=== PATIENT | female | born 1990 | race Caucasian/White ===

== ENCOUNTER 2020-02-04 18:43 | Emergency (ER) | payer SELFPAY ==
[2020-02-04] MEDS ORDERED: FENTANYL CITR 100 MCG/2 ML ONE ×3 (19:17→21:18)
[2020-02-04] MEDS ORDERED: ONDANSETRON 4 MG/2 ML VIAL ONE (19:17)
[2020-02-04] MEDS ORDERED: METHYLPREDNISOLONE 125 MG INJ ONE (20:33)
[2020-02-04] MEDS ORDERED: DIPHENHYDRAMINE 50 MG/ML VIAL ONE (20:33)
[2020-02-04 20:43] LABS: Basophils % 0.6 % (0-1.3); Lymphocytes % 22.6 % (15.3-44.8); RBC Red Blood Cell Count 3.65 M/uL (3.86-4.86)
[2020-02-04 20:55] LABS: BUN Blood Urea Nitrogen 14 mg/dL (7-18); Bicarbonate 24 mmol/L (21-32); Glucose Level 81 mg/dL (74-106); Potassium 3.6 mmol/L (3.5-5.1); Sodium Level 141 mmol/L (136-145)
[2020-02-04] MEDS ORDERED: HYDROMORPHONE HCL 0.5 MG/0.5 ML INJ ONE ×2 (22:01→22:50)
--- NOTE | 2020-02-04 22:34 | EDPHYS ---
Physician Documentation [facility] Name: Carol Saldana Age: 29 yrs Sex: Female : 1990 Arrival Date: 02/04/2020 Time: 18:44 Bed 5 Private MD: ED Physician King Mandujano HPI: 02/03 20:16 This 29 yrs old Female presents to ER via Ambulatory with complaints of Fall jr8 Injury. 20:16 Details of fall: The patient fell from a height, top of 18 [address] . Onset: The jr8 symptoms/episode began/occurred acutely, today. Associated injuries: The patient sustained upper back injury, injury to the chest, injury to the abdomen. Severity of symptoms: At their worst the symptoms were moderate, in the emergency department the symptoms are unchanged. The patient has not experienced similar symptoms in the past. The patient has not recently seen a physician. Patient stated that she was changing a bulb on top of truck. Stated that she slipped and fell left side and then on back. Denies hitting head or neck. Denies LOC . 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 - Social history:: Smoking status: Patient reports the use of cigarette tobacco products, smokes one-half pack cigarettes per day. - Immunization history: Last tetanus immunization: unknown. ROS: 20:16 Eyes: Negative for injury, pain, redness, and discharge, ENT: Negative for injury, jr8 pain, and discharge, Neck: Negative for injury, pain, and swelling, Respiratory: Negative for shortness of breath, cough, wheezing, and pleuritic chest pain, Skin: Negative for injury, rash, and discoloration, Neuro: Negative for headache, weakness, numbness, tingling, and seizure. 20:16 Cardiovascular: Positive for chest pain, with movement. 20:16 Abdomen/GI: Positive for abdominal pain, Negative for nausea, vomiting, and diarrhea. 20:16 Back: Positive for pain at rest, pain with movement, Negative for radiated pain. 20:16 MS/extremity: Positive for pain, of the left foot. Exam: 20:16 Head/Face: Normocephalic, atraumatic. Eyes: Pupils equal round and reactive to light, jr8 extra-ocular motions intact. Lids and lashes normal. Conjunctiva and sclera are non-icteric and not injected. Cornea within normal limits. Periorbital areas with no swelling, redness, or edema. ENT: Nares patent. No nasal discharge, no septal abnormalities noted. Tympanic membranes are normal and external auditory canals are clear. Oropharynx with no redness, swelling, or masses, exudates, or evidence of obstruction, uvula midline. Mucous membranes moist. Neck: Trachea midline, no thyromegaly or masses palpated, and no cervical lymphadenopathy. Supple, full range of motion without nuchal rigidity, or vertebral point tenderness. No Meningismus. Cardiovascular: Tachycardia with a normal S1 and S2. No gallops, murmurs, or rubs. Normal PMI, no JVD. No pulse deficits. Respiratory: Lungs have equal breath sounds bilaterally, clear to auscultation and percussion. No rales, rhonchi or wheezes noted. No increased work of breathing, no retractions or nasal flaring. 20:16 Skin: Warm, dry with normal turgor. Normal color with no rashes, no lesions, and no evidence of cellulitis. Neuro: Awake and alert, GCS 15, oriented to person, place, time, and situation. Cranial nerves II-XII grossly intact. Motor strength 5/5 in all extremities. Sensory grossly intact. Cerebellar exam normal. Normal gait. 20:16 Chest/axilla: Inspection: normal, Palpation: tenderness, that is moderate, of the left lateral anterior chest. 20:16 Abdomen/GI: Inspection: abdomen appears normal, Bowel sounds: active, all quadrants, Palpation: soft, in all quadrants, moderate abdominal tenderness, in the anterior aspect of left lateral abdomen and left upper quadrant, Liver: tenderness, is not appreciated. 20:16 Back: pain, that is moderate, of the thoracic area (T7) region, ROM is painful, normal spinal alignment noted, CVA tenderness, is absent. 20:16 Musculoskeletal/extremity: Extremities: grossly normal except: noted in the left foot: pain, tenderness, ROM: intact in all extremities, Circulation is intact in all extremities. Sensation intact. Vital Signs: 18:47 BP 133 / 81; Pulse 141; Resp 18; Temp 98.1; Pulse Ox 96% ; Weight 61.23 kg; Height 5 ll1 ft. 6 in. (167.64 cm); Pain 9/10; 19:28 BP 117 / 89; Pulse 111; Resp 17; Temp 98.5; Pulse Ox 98% on R/A; ll2 20:17 BP 106 / 85; Pulse 111; Resp 18; Pulse Ox 98% on R/A; ea 21:00 BP 127 / 79; Pulse 94; Resp 18; Pulse Ox 98% ; ea 22:00 BP 122 / 71; Pulse 88; Resp 18; Pulse Ox 99% on R/A; ea 22:30 BP 126 / 70; Pulse 80; Resp 18; Pulse Ox 98% on R/A; ea 18:47 Body Mass Index 21.79 (61.23 kg, 167.64 cm) ll1 [place] Coma Score: 19:23 Eye Response: spontaneous(4). Verbal Response: oriented(5). Motor Response: obeys ea commands(6). Total: 15. Trauma Score (Adult): 19:23 Eye Response: spontaneous(1); Verbal Response: oriented(1); Motor Response: obeys ea commands(2); Systolic BP: > 89 mm Hg(4); Respiratory Rate: 10 to 29 per min(4); Jaja Score: 15; Trauma Score: 12 MDM: 18:52 Patient medically screened. [facility] 22:22 Data reviewed: vital signs, nurses notes, lab test result(s), radiologic studies, CT jr8 scan, plain films. Data interpreted: Pulse oximetry: on room air is 99 %. Interpretation: normal. Counseling: I had a detailed discussion with the patient and/or guardian regarding: the historical points, exam findings, and any diagnostic results supporting the discharge/admit diagnosis, lab results, radiology results, the need for outpatient follow up, a family practitioner, to return to the emergency department if symptoms worsen or persist or if there are any questions or concerns that arise at home. Response to treatment: the patient's symptoms have mildly improved after treatment. ED course: Patient hemodynamically stable. Pain improved but not gone. VS stable. No acute findings on CT. Will d/c home to f/u with PCP. If worse to come back . 02/03 18:53 Order name: Basic Metabolic Panel; Complete Time: 21:05 [facility] 02/03 18:53 Order name: CBC with Diff; Complete Time: 20:47 [facility] 02/03 18:53 Order name: Type And Screen; Complete Time: 22:22 8 02/03 18:53 Order name: CT Chest, Abdomen, Pelvis - W/Contrast [facility] 02/03 18:53 Order name: XRAY Foot LEFT 3 View 8 02/03 18:53 Order name: Labs collected and sent; Complete Time: 20:32 [facility] Administered Medications: 19:25 Drug: fentaNYL (PF) 50 mcg Route: IM; Site: left gluteus; ll2 21:58 Follow up: Response: No adverse reaction; RASS: Alert and Calm (0) ll2 19:45 Drug: fentaNYL (PF) 50 mcg Route: IVP; Site: right antecubital; ll2 22:01 Follow up: Response: No adverse reaction; RASS: Alert and Calm (0) ll2 20:30 Drug: Zofran (Ondansetron) 4 mg Route: IVP; Site: right antecubital; ll2 21:58 Follow up: Response: No adverse reaction ll2 20:31 Drug: SOLU-Medrol 125 mg Route: IVP; Site: right antecubital; ll2 21:58 Follow up: Response: No adverse reaction ll2 20:32 Drug: Benadryl 25 mg Route: IVP; Site: right antecubital; ll2 21:58 Follow up: Response: No adverse reaction ll2 21:15 Drug: fentaNYL (PF) 50 mcg Route: IVP; Site: right antecubital; ea 22:48 Follow up: Response: No adverse reaction; RASS: Alert and Calm (0) ll2 22:02 Drug: Dilaudid 0.5 mg Route: IVP; Site: right antecubital; ll2 22:02 Follow up: Response: No adverse reaction; RASS: Alert and Calm (0) ll2 22:47 Drug: Dilaudid 0.5 mg Route: IVP; Site: right antecubital; ll2 22:48 Follow up: Response: No adverse reaction; RASS: Alert and Calm (0) ll2 Disposition: 02/04 09:07 Co-signature as Attending Physician, King Mandujano MD I agree with the assessment and kdr plan of care. Disposition: 02/04/20 22:33 Discharged to Home. Impression: Acute pain due to trauma, Avulsion fracture (chip fracture) of talus. - Condition is Stable. - Discharge Instructions: Muscle Pain, Adult, Pain Medicine Instructions. - Prescriptions for Ibuprofen 800 mg Oral Tablet - take 1 tablet by ORAL route every 12 hours As needed take with food; 20 tablet. Robaxin 500 mg Oral Tablet - take 2 tablet by ORAL route every 6 hours As needed; 40 tablet. Tylenol- Codeine #3 300-30 mg Oral Tablet - take 2 tablets by ORAL route every 6 hours As needed; 20 tablet. - Medication Reconciliation Form, Thank You Letter, Antibiotic Education, Prescription Opioid Use form. - Follow up: Private Physician; When: 2 - 3 days; Reason: Recheck today's complaints, Continuance of care, Re-evaluation by your physician. - Problem is new. - Symptoms have improved. Signatures: Dispatcher [employer] EDMS King Mandujano MD MD kdr Roszak, Josh, PA PA jr8 Briana Rangel RN RN Alicia Becker RN RN ll2 Spring Steiner RN RN ll1 Corrections: (The following items were deleted from the chart) 02/03 22:52 22:33 02/04/2020 22:33 Discharged to Home. Impression: Acute pain due to trauma; ea Avulsion fracture (chip fracture) of talus. Condition is Stable. Forms are Medication Reconciliation Form, Thank You Letter, Antibiotic Education, Prescription Opioid Use. Follow up: Private Physician; When: 2 - 3 days; Reason: Recheck today's complaints, Continuance of care, Re-evaluation by your physician. Problem is new. Symptoms have improved. jr8
--- NOTE | 2020-02-04 22:34 | ER ---
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 Fell 9 ll1 feet, hit a catwalk on the way down, then landed on the ground. No head injury, no LOC. Reports hitting left side of abdomen and left hip on catwalk. Left lateral foot pain and mid back pain since. Coronavirus screen: Client denies travel out of the [place] in the last 14 days. At this time, the client does not indicate any symptoms associated with coronavirus-19. Ebola Screen: Patient denies travel to an Ebola-affected area in the 21 days before illness onset. Initial Sepsis Screen: Does the patient meet any 2 criteria? HR > 90 bpm. Risk Assessment: Do you want to hurt yourself or someone else? Patient reports no desire to harm self or others. Onset of symptoms was February 04, 2020. 18:47 Method Of Arrival: Ambulatory ll1 18:47 Acuity: ZONIA 2 ll1 19:24 Care prior to arrival: None. Mechanism of Injury: Fall truck. Trauma event details: ea Injury occurred in the [facility], Injury occurred: at home. 19:27 Initial Sepsis Screen: Does the patient have a suspected source of infection? No. ll2 Patient's initial sepsis screen is negative. 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 - Social history:: Smoking status: Patient reports the use of cigarette tobacco products, smokes one-half pack cigarettes per day. - Immunization history: Last tetanus immunization: unknown. Screenin:23 Abuse screen: Denies threats or abuse. Nutritional screening: No deficits noted. ea Tuberculosis screening: No symptoms or risk factors identified. Fall Risk None identified. Primary Survey: 19:24 NO uncontrolled hemorrhage observed. Breathing/Chest: Respiratory pattern: regular, ea Respiratory effort: spontaneous, unlabored. Circulation: Skin color: pink, Skin temperature: warm. Disability Alert. Exposure/Environment: A warming method has been applied: A warm blanket has been provided to the patient. 19:28 Reassessment Breathing/Chest Respiratory pattern Regular Respiratory effort Spontaneous ll2 Unlabored. Assessment: 19:22 General: Appears in no apparent distress. Behavior is calm, cooperative, appropriate ea for age. Pain: Complains of pain in back, buttocks and abdomen. Neuro: Level of Consciousness is awake, alert, obeys commands, Oriented to person, place, time, situation. Cardiovascular: Patient's skin is warm and dry. Respiratory: Airway is patent Respiratory effort is even, unlabored, Respiratory pattern is regular, symmetrical. Derm: Skin is pink, warm \T\ dry. 19:22 General: Appears in no apparent distress. uncomfortable. Pain: Complains of pain in low ll2 back area, left low back and left mid back Pain currently is 10 out of 10 on a pain scale. Quality of pain is described as sharp, shooting. Neuro: Level of Consciousness is awake, alert, obeys commands, Oriented to person, place, time, situation. Cardiovascular: Capillary refill < 3 seconds Patient's skin is warm and dry. Respiratory: Airway is patent Respiratory effort is even, unlabored, Respiratory pattern is regular, symmetrical. GI: No signs and/or symptoms were reported involving the gastrointestinal system. : No signs and/or symptoms were reported regarding the genitourinary system. EENT: No signs and/or symptoms were reported regarding the EENT system. Derm: Skin is intact, is healthy with good turgor, Skin is dry, Skin is pink, warm \T\ dry. Skin temperature is warm. Musculoskeletal: Circulation, motion, and sensation intact. Range of motion: limited in left hip. 19:26 Reassessment: Patient and/or family updated on plan of care and expected duration. Pain ll2 level reassessed. Patient is alert, oriented x 3, equal unlabored respirations, skin warm/dry/pink. ERP to bedside trying to find a spot for IV, no location noted, nurses notified to perform central line. 20:55 Reassessment: Patient and/or family updated on plan of care and expected duration. Pain ea level reassessed. Patient is alert, oriented x 3, equal unlabored respirations, skin warm/dry/pink. 22:02 Reassessment: Patient and/or family updated on plan of care and expected duration. Pain ll2 level reassessed. Patient is alert, oriented x 3, equal unlabored respirations, skin warm/dry/pink. 22:17 Reassessment: Patient and/or family updated on plan of care and expected duration. Pain ea level reassessed. Patient is alert, oriented x 3, equal unlabored respirations, skin warm/dry/pink. Provider at bedside updating pt on plan of care. 22:48 Reassessment: erp to bedside discussing DC, mold technician applied boot and instructed on ll2 crutch use. 22:50 Reassessment: Patient and/or family updated on plan of care and expected duration. Pain ea level reassessed. Patient is alert, oriented x 3, equal unlabored respirations, skin warm/dry/pink. Discharge instruction given to patient, verbalized the understanding of instruction. Pt left ED with crutches, tolerating well. Vital Signs: 18:47 BP 133 / 81; Pulse 141; Resp 18; Temp 98.1; Pulse Ox 96% ; Weight 61.23 kg; Height 5 ll1 ft. 6 in. (167.64 cm); Pain 9/10; 19:28 BP 117 / 89; Pulse 111; Resp 17; Temp 98.5; Pulse Ox 98% on R/A; ll2 20:17 BP 106 / 85; Pulse 111; Resp 18; Pulse Ox 98% on R/A; ea 21:00 BP 127 / 79; Pulse 94; Resp 18; Pulse Ox 98% ; ea 22:00 BP 122 / 71; Pulse 88; Resp 18; Pulse Ox 99% on R/A; ea 22:30 BP 126 / 70; Pulse 80; Resp 18; Pulse Ox 98% on R/A; ea 18:47 Body Mass Index 21.79 (61.23 kg, 167.64 cm) ll1 [place] Coma Score: 19:23 Eye Response: spontaneous(4). Verbal Response: oriented(5). Motor Response: obeys ea commands(6). Total: 15. Trauma Score (Adult): 19:23 Eye Response: spontaneous(1); Verbal Response: oriented(1); Motor Response: obeys ea commands(2); Systolic BP: > 89 mm Hg(4); Respiratory Rate: 10 to 29 per min(4); Jaja Score: 15; Trauma Score: 12 ED Course: 18:44 Patient arrived in ED. ds1 18:50 Triage completed. ll1 18:50 Arm band placed on Patient placed in an exam room, on a stretcher. ll1 18:52 Sloan Voss PA is PHCP. jr8 18:52 King Mandujano MD is Attending Physician. jr8 19:13 Briana Rangel, LADONNA is Primary Nurse. ea 19:22 Alicia Flynn, LADONNA is Primary Nurse. ll2 19:23 Patient has correct armband on for positive identification. Bed in low position. Call ea light in reach. Side rails up X2. Pulse ox on. NIBP on. 19:23 Patient maintains SpO2 saturation greater than 95% on room air. Thermoregulation: warm ea blanket given to patient. 19:37 XRAY Foot LEFT 3 View In Process Unspecified. EDMS 20:41 CT Chest, Abdomen, Pelvis - W/Contrast In Process Unspecified. EDMS 20:50 Inserted saline lock: 20 gauge in right forearm, using aseptic technique. Blood rv collected. 20:50 Initial lab(s) drawn, by me, sent to lab. rv 22:51 No provider procedures requiring assistance completed. IV discontinued, intact, ea bleeding controlled, No redness/swelling at site. Pressure dressing applied. Administered Medications: 19:25 Drug: fentaNYL (PF) 50 mcg Route: IM; Site: left gluteus; ll2 21:58 Follow up: Response: No adverse reaction; RASS: Alert and Calm (0) ll2 19:45 Drug: fentaNYL (PF) 50 mcg Route: IVP; Site: right antecubital; ll2 22:01 Follow up: Response: No adverse reaction; RASS: Alert and Calm (0) ll2 20:30 Drug: Zofran (Ondansetron) 4 mg Route: IVP; Site: right antecubital; ll2 21:58 Follow up: Response: No adverse reaction ll2 20:31 Drug: SOLU-Medrol 125 mg Route: IVP; Site: right antecubital; ll2 21:58 Follow up: Response: No adverse reaction ll2 20:32 Drug: Benadryl 25 mg Route: IVP; Site: right antecubital; ll2 21:58 Follow up: Response: No adverse reaction ll2 21:15 Drug: fentaNYL (PF) 50 mcg Route: IVP; Site: right antecubital; ea 22:48 Follow up: Response: No adverse reaction; RASS: Alert and Calm (0) ll2 22:02 Drug: Dilaudid 0.5 mg Route: IVP; Site: right antecubital; ll2 22:02 Follow up: Response: No adverse reaction; RASS: Alert and Calm (0) ll2 22:47 Drug: Dilaudid 0.5 mg Route: IVP; Site: right antecubital; ll2 22:48 Follow up: Response: No adverse reaction; RASS: Alert and Calm (0) ll2 Outcome: 22:33 Discharge ordered by MD. rosen 22:51 Discharged to home with crutches, with family. ea 22:51 Condition: stable 22:51 Patient's length of stay was not longer than 2 hours. 22:51 Discharge instructions given to patient, Instructed on discharge instructions, follow ea up and referral plans. Demonstrated understanding of instructions, follow-up care, medications, Prescriptions given X 2. 22:52 Patient left the ED. ea Signatures: Dispatcher [employer] EDWA Charla Perez Josh, PA PA jr8 Antunez, Elena, RN RN ea Vicente, Ronaldo, RN RN rv [place], Lacie, RN RN ll2 Spring Steiner RN RN ll1
--- NOTE | 2020-02-04 23:57 | RAD REPORT ---
EXAM DESCRIPTION: CT - Chest Abdomen Pelvis W Cont - 02/04/2020 10:23 pm CLINICAL HISTORY: Chest and abdomen pain. TRAUMA COMPARISON: No comparisons TECHNIQUE: Approximately 100 mL nonionic IV contrast was administered to the patient. All CT scans are performed using dose optimization technique as appropriate and may include automated exposure control or mA/KV adjustment according to patient size. FINDINGS: The lungs are clear.No pleural or pericardial effusion.No intrathoracic adenopathy.Cholecy stectomy. The liver, spleen, pancreas, adrenal glands and right kidney are within normal limits. Thirteen in mm hyperdensity in the left kidney midpole mid laterally may represent a large calcification/stone. No bowel obstruction, free air, free fluid or abscess. Appendectomy suspected. No pathologic lymphad enopathy in the abdomen or pelvis. No worrisome osseous finding. IMPRESSION: No acute abnormality is detected.
[2020-02-05 01:07] VITALS: TEMP 98.5
[2020-02-05 01:11] VITALS: BP 122/71; O2SAT 99
--- NOTE | 2020-02-05 11:58 | RAD REPORT ---
EXAM DESCRIPTION: RAD - Foot Left 3 View - 02/04/2020 10:24 pm CLINICAL HISTORY: PAIN COMPARISON: No comparisons FINDINGS: No acute fracture or dislocation is seen. Tiny calcaneal spur.
== END 2020-02-04 22:52 | disposition home or self-care (01) ==
LOC: ER 18:43
DX: S92.152A Displaced avulsion fracture (chip fracture) of left talus, initial encounter for closed fracture (principal); W01.0XXA Fall on same level from slipping, tripping and stumbling without subsequent striking against object, initial encounter; Y93.89 Activity, other specified; Y92.9 Unspecified place or not applicable; Z88.5 Allergy status to narcotic agent; Z88.6 Allergy status to analgesic agent; Z85.528 Personal history of other malignant neoplasm of kidney; F17.210 Nicotine dependence, cigarettes, uncomplicated
CPT/HCPCS: 36415; 71260; 74177; 80048; 85025; 86850; 86900; 86901; 96372; 96374; 96375; 99284; G0390; J1170; J1200; J2405; J2930; J3010; Q9967